=== PATIENT | female | born 2000 | race African-American/Black ===

== ENCOUNTER 2023-10-13 22:09 | Emergency (ER) | payer SELFPAY ==
[2023-10-13] MEDS ORDERED: Sodium Chloride 0.9% 100 ML ONE (22:46)
[2023-10-13] MEDS ORDERED: Ketorolac Tromethamine 30 MG (1 mL) VIAL ONE (22:46)
[2023-10-13] MEDS ORDERED: Metoclopramide HCl 10 MG (2 mL) VIAL ONE (22:46)
[2023-10-13 23:20] LABS: Influenza A by NAA DETECTED (NotDetected); Influenza B by NAA Not Detected (NotDetected); SARS-CoV-2 NAA Rapid Test Not Detected (NotDetected)
[2023-10-13] MEDS ORDERED: Ibuprofen 200 MG TAB ONE (23:29)
[2023-10-13] MEDS ORDERED: Oseltamivir 75 MG CAP ONE (23:29)
== END 2023-10-13 23:50 | disposition home or self-care (01) ==
LOC: NAV ERS 22:09
DX: J10.1 Influenza due to other identified influenza virus with other respiratory manifestations (principal); J20.8 Acute bronchitis due to other specified organisms; F17.290 Nicotine dependence, other tobacco product, uncomplicated
CPT/HCPCS: 71045; 93005; J1885; J2765